=== PATIENT | female | born 1930 | race Caucasian/White ===

== ENCOUNTER 2016-07-07 21:58 | Emergency (ER) | payer MEDICARE ==
[2016-07-07] MEDS ORDERED: Sodium Chloride 0.9% 250 ML IV SCH (22:15)
--- NOTE | 2016-07-07 22:16 | EDM.PDOC ---
ED HPI NEURO - General Chief Complaint: Neurological Problem Stated Complaint: BY AMBULANCE Time Seen by Provider: 07/07/16 22:14 Source of Information: Reports: Patient, EMS History Limitations: Reports: No limitations - History of Present Illness INITIAL COMMENTS - FREE TEXT/NARRATIVE: 86 yo white female brought in by ambulance for difficulty with speech. PMHx. TIAs Symptom Onset Date: 07/07/16 Symptom Onset Time: 21:00 Timing/Duration: Reports: Minutes: Location (Neuro Complaint): Reports: face, other (difficulty with speech) Severity: mild Associated Symptoms: Reports: headaches - Related Data Allergies/ADRs: Allergies Allergy/AdvReac Type Severity Reaction Status Date / Time aresols Allergy Difficulty Uncoded 07/07/16 22:07 Breathing Home Meds: Home Meds Nitroglycerin [Nitro-Dur] 0.4 mg TOP QAM 07/06/13 [History] Sertraline HCl [Zoloft] 50 mg PO DAILY 07/06/13 [History] Lisinopril [Zestril] 10 mg PO DAILY 11/27/13 [History] Acetaminophen [Tylenol Extra Strength] 500 mg PO ASDIRECTED PRN 01/19/16 [ History] Budesonide/Formoterol [Symbicort 160-4.5 Mcg Inhaler] 10.2 gm IH ASDIRECTED PRN 01/19/16 [History] atorvaSTATin [Lipitor] 10 mg PO DAILY 01/19/16 [History] Aspirin 81 mg PO BRK 07/08/16 [History] Past Medical History HEENT History: Reports: Glaucoma, Impaired vision Other HEENT History: wears glasses Cardiovascular History: Reports: CAD, Hypertension Respiratory History: Reports: Asthma, COPD Gastrointestinal History: Reports: None Genitourinary History: Reports: Other (see below) Other Genitourinary History: frequency due to weak bladder Musculoskeletal History: Reports: Back pain, chronic Neurological History: Reports: Headaches, chronic Psychiatric History: Reports: Depression Endocrine/Metabolic History: Reports: Diabetes, type II Hematologic History: Reports: Blood transfusion(s) Immunologic History: Reports: None Oncologic (Cancer) History: Reports: Breast Dermatologic History: Reports: None - Infectious Disease History Infectious Disease History: Reports: MRSA, Other (see below) Other Infectious Disease History: Cleared MRSA x3 - Past Surgical History Head Surgeries/Procedures: Reports: None HEENT Surgical History: Reports: Adenoidectomy, Tonsillectomy GI Surgical History: Reports: Appendectomy, Cholecystectomy Female Surgical History: Reports: Hysterectomy, Mastectomy Musculoskeletal Surgical History: Reports: Knee replacement Social & Family History - Tobacco Use Smoking Status *Q: Never Smoker Second Hand Smoke Exposure: No - Caffeine Use Caffeine Use: Reports: Coffee, Soda, Tea - Alcohol Use Days Per Week of Alcohol Use: 0 - Recreational Drug Use Recreational Drug Use: No ED ROS GENERAL - Review of Systems Review Of Systems: See Below Constitutional: Reports: no symptoms HEENT: Reports: No symptoms Respiratory: Reports: No Symptoms Cardiovascular: Reports: No symptoms Endocrine: Reports: no symptoms GI/Abdominal: Reports: No symptoms : Reports: no symptoms Musculoskeletal: Reports: no symptoms Skin: Reports: no symptoms Neurological: Reports: Headache, Change in Speech (At time of ED evaluation speech normal) Psychiatric: Reports: No symptoms Hematologic/Lymphatic: Reports: no symptoms Immunologic: Reports: no symptoms ED EXAM, NEURO - Physical Exam Exam: See Below Exam Limited By: No limitations General Appearance: alert, WD/WN, no apparent distress, anxious Eye Exam: bilateral eye: PERRL Ears: normal external exam Nose: normal inspection Throat/Mouth: Normal inspection, Normal lips, Normal voice Head Exam: atraumatic Neck: normal inspection Respiratory/Chest: no respiratory distress, lungs clear Cardiovascular: normal peripheral pulses GI/Abdominal: normal bowel sounds Neurological: alert, normal mood/affect Back Exam: normal inspection Extremities: normal inspection Psychiatric: normal affect Skin Exam: Warm, Dry Course - Vital Signs Last Recorded V/S: Last Vital Signs Temp 36.8 C 07/07/16 22:09 Pulse 75 07/08/16 01:27 Resp 24 H 07/08/16 01:27 BP 154/92 H 07/08/16 01:27 Pulse Ox 92 L 07/08/16 01:27 - Orders/Labs/Meds Orders: Active Orders 24 hr Category Date Time Status Communication Order [RC] STAT Care 07/07/16 23:25 Active RT Aerosol Therapy [RC] ASDIRECTED Care 07/08/16 01:11 Active Sodium Chloride 0.9% [Normal Saline] 250 ml Med 07/07/16 22:15 Active IV ASDIRECTED Medication Orders Sodium Chloride (Normal Saline) 250 mls @ 50 mls/hr IV ASDIRECTED DARIO Last Admin: 07/07/16 22:47 Dose: 50 mls/hr Labs: Laboratory Tests 07/07/16 07/07/16 07/07/16 Range/Units 22:35 22:50 22:50 WBC 7.2 (5.0-10.0) 10^3/uL RBC 4.71 (4.2-5.4) 10^6/uL Hgb 14.5 (12.0-16.0) g/dL Hct 45.7 (37.0-47.0) % MCV 97.0 (80-100) fL MCH 30.8 (27.0-34.0) pg MCHC 31.7 L (33.0-35.0) g/dL Plt Count 190 (150-450) 10^3/uL Neut % (Auto) 55.1 (42.2-75.2) % Lymph % (Auto) 32.4 (20.5-50.1) % [place] % (Auto) 7.5 (2-8) % Eos % (Auto) 4.6 H (1.0-3.0) % Baso % (Auto) 0.4 (0.0-1.0) % D-Dimer, Quantitative 295 (0-400) ng/mL Sodium (135-145) mmol/L Potassium (3.6-5.0) mmol/L Chloride (101-111) mmol/L Carbon Dioxide (21.0-31.0) mmol/L Anion Gap BUN (7-18) mg/dL Creatinine (0.6-1.3) mg/dL Est Cr Clr Drug Dosing Estimated GFR (MDRD) BUN/Creatinine Ratio Glucose (74-105) mg/dL Calcium (8.4-10.2) mg/dl Total Bilirubin (0.2-1.0) mg/dL AST (10-42) IU/L ALT (10-60) IU/L Alkaline Phosphatase (42-121) IU/L Troponin I (0.00-0.02) ng/ml Total Protein (6.7-8.2) g/dl Albumin (3.2-5.5) g/dl Globulin Albumin/Globulin Ratio Urine Color Yellow (YELLOW) Urine Appearance Slightly cloudy (CLEAR) Urine pH 7.0 (5.0-9.0) Ur Specific [place] 1.015 (1.005-1.030) Urine Protein Negative (NEGATIVE) Urine Glucose (UA) Negative (NEGATIVE) Urine Ketones Negative (NEGATIVE) Urine Occult Blood Small H (NEGATIVE) Urine Nitrite Negative (NEGATIVE) Urine Bilirubin Negative (NEGATIVE) Urine Urobilinogen 0.2 (0.2-1.0) mg/dL Ur Leukocyte Esterase Trace H (NEGATIVE) Urine RBC 0-5 /HPF Urine WBC 0-5 (0-5/HPF) /HPF Ur Epithelial Cells Rare /HPF Urine Bacteria Few (0-FEW/HPF) /HPF 07/07/16 Range/Units 22:50 WBC (5.0-10.0) 10^3/uL RBC (4.2-5.4) 10^6/uL Hgb (12.0-16.0) g/dL Hct (37.0-47.0) % MCV (80-100) fL MCH (27.0-34.0) pg MCHC (33.0-35.0) g/dL Plt Count (150-450) 10^3/uL Neut % (Auto) (42.2-75.2) % Lymph % (Auto) (20.5-50.1) % [place] % (Auto) (2-8) % Eos % (Auto) (1.0-3.0) % Baso % (Auto) (0.0-1.0) % D-Dimer, Quantitative (0-400) ng/mL Sodium 141 (135-145) mmol/L Potassium 3.6 (3.6-5.0) mmol/L Chloride 104 (101-111) mmol/L Carbon Dioxide 31.0 (21.0-31.0) mmol/L Anion Gap 9.6 BUN 15 (7-18) mg/dL Creatinine 0.7 (0.6-1.3) mg/dL Est Cr Clr Drug Dosing TNP Estimated GFR (MDRD) > 60 BUN/Creatinine Ratio 21.42 Glucose 140 H (74-105) mg/dL Calcium 8.7 (8.4-10.2) mg/dl Total Bilirubin 0.3 (0.2-1.0) mg/dL AST 13 (10-42) IU/L ALT 10 (10-60) IU/L Alkaline Phosphatase 92 (42-121) IU/L Troponin I < 0.02 (0.00-0.02) ng/ml Total Protein 6.9 (6.7-8.2) g/dl Albumin 3.6 (3.2-5.5) g/dl Globulin 3.3 Albumin/Globulin Ratio 1.09 Urine Color (YELLOW) Urine Appearance (CLEAR) Urine pH (5.0-9.0) Ur Specific [place] (1.005-1.030) Urine Protein (NEGATIVE) Urine Glucose (UA) (NEGATIVE) Urine Ketones (NEGATIVE) Urine Occult Blood (NEGATIVE) Urine Nitrite (NEGATIVE) Urine Bilirubin (NEGATIVE) Urine Urobilinogen (0.2-1.0) mg/dL Ur Leukocyte Esterase (NEGATIVE) Urine RBC /HPF Urine WBC (0-5/HPF) /HPF Ur Epithelial Cells /HPF Urine Bacteria (0-FEW/HPF) /HPF Meds: Medications Generic Name Dose Route Start Last Admin Trade Name Freq PRN Reason Stop Dose Admin Sodium Chloride 250 mls @ 50 mls/hr 07/07/16 22:15 07/07/16 22:47 Normal Saline IV 50 mls/hr ASDIRECTED DARIO Administration Discontinued Medications Generic Name Dose Route Start Last Admin Trade Name Freq PRN Reason Stop Dose Admin Albuterol/Ipratropium 3 ml 07/08/16 01:11 07/08/16 01:15 Duoneb 3.0-0.5 Mg/3 Ml NEB 07/08/16 01:12 3 ml ONETIME ONE Administration Clonidine HCl 0.2 mg 07/07/16 22:57 07/07/16 23:06 Catapres PO 07/07/16 22:58 0.2 mg ONETIME ONE Administration Clonidine HCl Confirm 07/07/16 23:00 07/07/16 23:06 Catapres Administered 07/07/16 23:01 Not Given Dose 0.2 mg .ROUTE .STK-MED ONE Clonidine HCl 0.2 mg 07/08/16 00:06 07/08/16 00:14 Catapres PO 07/08/16 00:07 0.2 mg ONETIME ONE Administration Iopamidol 100 ml 07/07/16 23:24 07/07/16 23:34 Isovue-370 (76%) IVPUSH 07/07/16 23:25 100 ml ONETIME ONE Administration Metoprolol Tartrate 50 mg 07/08/16 00:50 07/08/16 00:55 Lopressor PO 07/08/16 00:51 50 mg ONETIME ONE Administration Departure - Departure Time of Disposition: 01:34 Disposition: Admitted As Inpatient 68 Condition: fair Clinical Impression: Hypoxemia Forms: ED Department Discharge - My Orders Last 24 Hours: My Active Orders 07/07/16 22:15 Sodium Chloride 0.9% [Normal Saline] 250 ml IV ASDIRECTED 07/07/16 23:25 Communication Order [RC] STAT 07/08/16 01:11 RT Aerosol Therapy [RC] ASDIRECTED - Assessment/Plan Last 24 Hours: My Active Orders 07/07/16 22:15 Sodium Chloride 0.9% [Normal Saline] 250 ml IV ASDIRECTED 07/07/16 23:25 Communication Order [RC] STAT 07/08/16 01:11 RT Aerosol Therapy [RC] ASDIRECTED
[2016-07-07] MEDS ORDERED: cloNIDine 0.1 MG Tab PO ONE (22:57)
[2016-07-07] MEDS ORDERED: cloNIDine 0.1 MG Tab ONE (23:00)
[2016-07-07 23:16] LABS: CHLORIDE,CL 104 mmol/L (101-111); SODIUM,NA 141 mmol/L (135-145)
[2016-07-07] MEDS ORDERED: Iopamidol 755 Mg/ML 100 ML Bottle IVPUSH ONE (23:24)
[2016-07-08] MEDS ORDERED: cloNIDine 0.1 MG Tab PO ONE (00:06)
[2016-07-08] MEDS ORDERED: Metoprolol Tartrate 50 MG Tab PO ONE (00:50)
[2016-07-08] MEDS ORDERED: Albuterol/Ipratropium 3.0-0.5 MG/3 ML Neb Soln NEB ONE (01:11)
[2016-07-08 01:29] VITALS: BP 154/92
--- NOTE | 2016-07-31 13:44 | EKG ---
07/07/2016- REZA FISHER - A standard 12-lead EKG showing normal sinus rhythm with a ventricular rate of 82 beats per minute. Normal NC interval and QRS duration. No significant ST-T changes. Normal EKG. [facility] /[id number] [facility]
== END 2016-07-08 02:55 ==
LOC: DL.ED 21:58
DX: R09.02 Hypoxemia (principal); I25.10 Atherosclerotic heart disease of native coronary artery without angina pectoris; I10 Essential (primary) hypertension; J45.909 Unspecified asthma, uncomplicated; J44.9 Chronic obstructive pulmonary disease, unspecified; F32.9 Major depressive disorder, single episode, unspecified; E11.9 Type 2 diabetes mellitus without complications; Z86.73 Personal history of transient ischemic attack (TIA), and cerebral infarction without residual deficits; Z79.82 Long term (current) use of aspirin; Z79.899 Other long term (current) drug therapy; Z88.8 Allergy status to other drugs, medicaments and biological substances; Z98.890 Other specified postprocedural states; Z90.49 Acquired absence of other specified parts of digestive tract; Z90.710 Acquired absence of both cervix and uterus
CPT/HCPCS: 36415; 70450; 71010; 71260; 80053; 81001; 84484; 85025; 85379; 96360; 96361; 99285; A9270; J7050; Q9967